=== PATIENT | male | born 1965 ===

== ENCOUNTER 2021-06-17 09:02 | Inpatient (IN) ==
[~2021-06-17 09:02] MED LIST: Buffered Lidocaine 1% SYRIN 1 ml INTRADERM ONE; Lactated Ringers 1000 ml BAG 1,000 ML IV SCH; ceFAZolin 2 GM in NS PREMIX 2 GM/100 ML BAG IVPB ONE
[2021-06-17] MEDS ORDERED: Lidocaine 2% PF 10 ML AMP ONE (09:28)
[2021-06-17] MEDS ORDERED: Bupivacaine 0.5% 50 ML MDV VIAL ONE (09:28)
[2021-06-17] MEDS ORDERED: ROPIVACAINE 5 MG/ML 30 ML BTL (0.5%) ONE (09:36)
[2021-06-17] MEDS ORDERED: Lidocaine 2% PF 5 ML VIAL ONE (10:11)
[2021-06-17] MEDS ORDERED: Propofol 10 MG/ML 20 ML BTL ONE (10:11)
[2021-06-17] MEDS ORDERED: Midazolam 2 mg/2 ml VIAL 1 mg/ml 2 ml VIAL (2 mg) ONE (10:11)
[2021-06-17] MEDS ORDERED: Ketamine HCL 50 mg/ml 10 ml VIAL (500 MG) ONE (10:12)
[2021-06-17] MEDS ORDERED: fentaNYL 100 mcg/2 ml 50 MCG/ML VIAL ONE (10:12)
[2021-06-17] MEDS ORDERED: Rocuronium 50 mg VIAL 10 mg/ml 5 ml VIAL (50 mg) ONE ×2 (10:20→11:35)
[2021-06-17] MEDS ORDERED: Dexamethasone IV 4 MG/ML VIAL 1 ml VIAL ONE (10:41)
[2021-06-17] MEDS ORDERED: Ondansetron 4 mg VIAL 2 MG/ML 2 ml VIAL ONE (10:41)
[2021-06-17] MEDS ORDERED: Ondansetron 4 mg VIAL 2 MG/ML 2 ml VIAL IV PRN ×2 (11:26→13:11)
[2021-06-17] MEDS ORDERED: HYDROmorphone 1 MG/1 ML SYRINGE IV PRN (11:26)
[2021-06-17] MEDS ORDERED: Naloxone 0.4 mg VIAL 0.4 mg/ml 1 ml VIAL IV PRN (11:26)
[2021-06-17] MEDS ORDERED: Labetalol IV 5 MG/ML 20 ml VIAL ONE (13:07)
[2021-06-17] MEDS ORDERED: Morphine 2 MG/ML SYRINGE IV PRN (13:11)
[2021-06-17] MEDS ORDERED: Lactulose 30 ml UDC PO PRN (13:11)
[2021-06-17] MEDS ORDERED: Ondansetron ODT 4 mg TAB 4 MG TAB PO PRN (13:11)
[2021-06-17] MEDS ORDERED: diPHENhydraMINE 25 mg TAB PO PRN (13:11)
[2021-06-17] MEDS ORDERED: Magnesium Hydroxide LIQ 30 ML UDC PO PRN (13:11)
[2021-06-17] MEDS ORDERED: oxyCODONE/Acetamin 5/325 mg TAB PO PRN ×2 (13:11)
[2021-06-17] MEDS ORDERED: diPHENhydraMINE IV 50 MG/ML 1 ml VIAL (BENADRYL) IV PRN (13:11)
[2021-06-17] MEDS ORDERED: HYDROmorphone 1 MG/1 ML SYRINGE ONE (13:30)
[2021-06-17] MEDS ORDERED: oxyCODONE/Acetamin 5/325 mg TAB ONE (13:30)
[2021-06-17] MEDS: Lactated Ringers 1000 ml BAG 1,000 ML IV SCH (15:12)
[2021-06-17] MEDS: ceFAZolin 1 GM ADVAN 1 GM in NS 0.9% 50 ML 50 ML IVPB SCH (17:49)
[2021-06-17] MEDS: Magnesium Hydroxide LIQ 30 ML UDC PO SCH (21:15)
[2021-06-18] MEDS: ceFAZolin 1 GM ADVAN 1 GM in NS 0.9% 50 ML 50 ML IVPB SCH ×2 (02:46→10:31)
[2021-06-18] MEDS: Lactated Ringers 1000 ml BAG 1,000 ML IV SCH (04:44)
[2021-06-18 06:34] LABS: Hematocrit 32 % (42-52); Hemoglobin 11.4 g/dL (14.0-18.0); Platelet Count 223 10^3/uL (150-450)
[2021-06-18 07:03] LABS: Calcium 8.1 mg/dL (8.6-10.3); EGFR African American 125.5 (>60); EGFR Non-African American 103.7 (>60)
[2021-06-18] MEDS: Magnesium Hydroxide LIQ 30 ML UDC PO SCH (08:58)
[2021-06-18] MEDS ORDERED: Vitamin THERAPEUTIC TAB PO SCH (09:00)
[2021-06-18 11:33] VITALS: BP 133/86
[2021-06-18] MEDS ORDERED: Enoxaparin 40 MG/0.4 ML SYR SUBCUT SCH (12:00)
[2021-06-19] MEDS ORDERED: Flu vaccine *QUAD* 2021-22* 0.5 ML SYRINGE IM ONE (09:00)
== END 2021-06-18 13:53 | disposition home or self-care (01) | DRG 313 ==
LOC: OR 09:02 → SSU 14:39
PROVIDERS: ADMIT Orthopaedic Surgery; ATTEND Orthopaedic Surgery